=== PATIENT | female | born 1995 | race Caucasian/White ===

== ENCOUNTER → 2016-07-28 | Outpatient (CLI) | payer OTHER ==
--- NOTE | 2016-07-28 17:00 | KCIC ---
PROCEDURE MRI thoracic spine without contrast. HISTORY Thoracic back pain, fall December 2015 with mid thoracic back pain since then TECHNIQUE Multiplanar, multi sequential non contrast MR imaging was performed of the thoracic spine. COMPARISON None FINDINGS Thoracic vertebral body stature and AP alignment are adequate. Intervertebral disc spaces are preserved. Thoracic cord caliber is within normal limits without focal signal abnormality. There is no focal posterior disc abnormality. There is no significant thoracic spinal stenosis or neural foramina compromise at any level. There is no significant marrow edema. There is a tiny T2 hyperintense lesion of the right thyroid gland 0.3 centimeters. There is very mild superior thoracic levoscoliosis. IMPRESSION 1. Other than very mild superior thoracic levoscoliosis, there is no significant abnormality of the thoracic spine. 2. There is tiny nonspecific T2 hyperintense lesion of the right thyroid gland. Electronically signed by: Chriss Connors MD (Jul 28, 2016 16:58:48)
== END | disposition home or self-care (01) ==
LOC: KCIC MRI 15:50
PROVIDERS: ATTEND Emergency Medicine Sports Medicine
DX: M54.6 Pain in thoracic spine (principal)
CPT/HCPCS: 72146